=== PATIENT | male | born 1995 | race Native Hawaiian/Other Pacific Islander ===

== ENCOUNTER 2017-01-21 02:23 | Emergency (ER) | payer SELFPAY ==
[2017-01-21 02:46] VITALS: BP 152/94
[2017-01-21] MEDS ORDERED: TYLENOL #3 PO ONE (03:28)
[2017-01-21] MEDS ORDERED: TRIMOX PO ONE (03:28)
--- NOTE | 2017-01-21 03:28 | Emergency Department Report ---
HPI - General Chief Complaint: Dental/Oral Time Seen by Provider: 01/21/17 03:10 - HPI HPI: The patient is a 21-year-old male who presents to ED complaining of 10/10 pain in the right side of his mouth x one month. Patient states that the pain started 2 days ago and has increased in severity. The pain is exacerbated by eating and opening of the mouth. Patient states the pain is alleviated initially with pain medication but comes back. Patient states he has not been able to go to his dentist due to his loss of insurance. Patient states that it radiates towards ear. Patient describes a as a throbbing, pressure-like sensation. Patient states otherwise well and has no other complaints. Patient has had no fevers and no chills. No chest pain, no shortness of breath. No abdominal pain. No shortness of breath or recent trauma to the face. ED Past Medical Hx - Past Medical History Previous Medical History?: No - Surgical History Past Surgical History?: No - Social History Smoking Status: Current Every Day Smoker Substance Use Type: None - Medications Home Medications: Home Medications Medication Instructions Recorded Confirmed Last Taken Type Acetaminophen/Codeine 1 tab PO Q6H #12 tablet 01/21/17 Unknown Rx [Acetaminophen-Codeine #3 TAB] Amoxicillin [Trimox CAP] 500 mg PO BID #20 capsule 01/21/17 Unknown Rx Ibuprofen [Motrin] 600 mg PO Q8H PRN #20 tablet 01/21/17 Unknown Rx ED Review of Systems ROS: Stated complaint: TOOTHACHE Other details as noted in HPI Constitutional: denies: chills, fever Eyes: denies: eye pain, eye discharge, vision change ENT: dental pain. denies: ear pain, throat pain, hearing loss, epistaxis, congestion Respiratory: denies: cough, shortness of breath, wheezing Cardiovascular: denies: chest pain, palpitations Endocrine: no symptoms reported Gastrointestinal: denies: abdominal pain, nausea, diarrhea Genitourinary: denies: urgency, dysuria, frequency, hematuria, discharge, testicular pain, testicular mass Musculoskeletal: denies: back pain, joint swelling, arthralgia Skin: denies: rash, lesions Neurological: denies: headache, weakness, paresthesias Psychiatric: denies: anxiety, depression Hematological/Lymphatic: denies: easy bleeding, easy bruising Physical Exam - Physical Exam Vital Signs: Vital Signs 01/21/17 02:42 Temperature 98.2 F Pulse Rate 96 H Respiratory 18 Rate Blood Pressure 152/94 O2 Sat by Pulse 98 Oximetry Physical Exam: GENERAL: Alert and oriented x3, no apparent distress, Normal Gait, atraumatic. HEAD: Head is normocephalic and a-traumatic. EYES: Extra ocular muscles are intact. Pupils are equal, round, and reactive to light and accommodation. MOUTH:Mouth is well hydrated and without lesions. Tonsils nonerythematous or swollen, Uvula midline, Tongue not elevated. Mucous membranes are moist. Posterior pharynx clear, no exudate or lesions. Patent airways. No gingival enlargement. Dental caries seen in 31. Tender to palpation NECK: Supple. Non edematous, No carotid bruits. No lymphadenopathy or thyromegaly. LUNGS: Symetrical with respiration, No wheezing, no rales or crackles, CTAB. HEART: S1, S2 present, regular rate and rhythm without murmur, no rubs, no gallops. NEUROLOGIC: No focal Deficit, Cranial nerves II through XII are grossly intact. No loss of sensation, PSYCHIATRIC: Mood is congruent with affect, denies suicidal or homicidal ideations. SKIN: Warm and dry, No lesions, No ulceration or induration present. ED Course Vital Signs 01/21/17 02:42 Temperature 98.2 F Pulse Rate 96 H Respiratory 18 Rate Blood Pressure 152/94 O2 Sat by Pulse 98 Oximetry ED Medical Decision Making - Medical Decision Making 21-year-old male presents with dental pain due to caries or infection ED course: Patient received Tylenol 3 and amoxicillin E. Discussed the patient to follow up with dentist has referred. Discussed to take antibiotics and pain medication as needed. Vital signs are normal patient is in no acute respiratory distress. Patient states he'll follow up with dentist Critical care attestation.: If time is entered above; I have spent that time in minutes in the direct care of this critically ill patient, excluding procedure time. ED Disposition Clinical Impression: Dental caries, Pain, dental Disposition: DISCHARGED TO HOME OR SELFCARE Is pt being admited?: No Does the pt Need Aspirin: No Condition: Stable Instructions: Toothache (ED), Dental Caries (ED) Prescriptions: Acetaminophen/Codeine [Acetaminophen-Codeine #3 TAB] 1 tab PO Q6H #12 tablet Amoxicillin [Trimox CAP] 500 mg PO BID #20 capsule Ibuprofen [Motrin] 600 mg PO Q8H PRN #20 tablet PRN Reason: Pain [facility] - 3-5 Days [facility] [Outside] - 3-5 Days [facility] [Outside] - 3-5 Days Forms: Work/School Release Form(ED) Time of Disposition: 03:31
== END 2017-01-21 04:00 | disposition home or self-care (01) ==
LOC: ED 02:23
DX: K02.9 Dental caries, unspecified (principal); F17.200 Nicotine dependence, unspecified, uncomplicated
CPT/HCPCS: 99282

== ENCOUNTER 2017-09-01 20:21 | Emergency (ER) | payer SELFPAY ==
[2017-09-01 20:26] VITALS: BP 149/72
--- NOTE | 2017-09-01 21:17 | Emergency Department Report ---
HPI - General Chief Complaint: Extremity Injury, Lower Time Seen by Provider: 09/01/17 21:06 - HPI HPI: 22-year-old male presents to the emergency department from work after twisting his right ankle just prior to presentation. He has pain to the front and lateral portion of the ankle. It swelled up at work and he has some mild discomfort and this is what brought him in to be seen. He has a past medical history of diabetes. He did not take anything for her symptoms prior to presentation. He is able to bear weight but has some pain with doing so. ED Past Medical Hx - Past Medical History Hx Diabetes: Yes - Surgical History Past Surgical History?: No - Social History Smoking Status: Current Every Day Smoker Substance Use Type: None - Medications Home Medications: Home Medications Medication Instructions Recorded Confirmed Last Taken Type Acetaminophen/Codeine [Tylenol 1 tab PO Q6H #12 tablet 01/21/17 Unknown Rx /Codeine # 3 tab] Amoxicillin [Trimox CAP] 500 mg PO BID #20 capsule 01/21/17 Unknown Rx Ibuprofen [Motrin 600 MG tab] 600 mg PO Q8H PRN #20 tablet 09/01/17 Unknown Rx ED Review of Systems ROS: Stated complaint: ANKLE STRAIN Other details as noted in HPI Comment: All other systems reviewed and negative Constitutional: denies: chills, fever Eyes: denies: eye pain, eye discharge, vision change ENT: denies: ear pain, throat pain Respiratory: denies: cough, shortness of breath, wheezing Cardiovascular: edema (right ankle swelling). denies: chest pain, palpitations Gastrointestinal: denies: abdominal pain, nausea, diarrhea Genitourinary: denies: urgency, dysuria Musculoskeletal: joint swelling, arthralgia. denies: back pain Skin: denies: rash, lesions Neurological: denies: headache, weakness, paresthesias Physical Exam - Physical Exam Vital Signs: Vital Signs 09/01/17 20:24 Temperature 98.8 F Pulse Rate 97 H Respiratory 18 Rate Blood Pressure 149/72 O2 Sat by Pulse 97 Oximetry Physical Exam: GENERAL: The patient is well-developed well-nourished. HENT: Normocephalic. Atraumatic. Patient has moist mucous membranes. EYES: Extraocular motions are intact. Pupils equal reactive to light bilaterally. NECK: Supple. Trachea is midline. CHEST/LUNGS: Clear to auscultation. There is no respiratory distress noted. HEART/CARDIOVASCULAR: Regular. There is no tachycardia. There is no murmur. ABDOMEN: Abdomen is soft, nontender. Patient has normal bowel sounds. SKIN: Skin is warm and dry. No appreciable swelling or edema to the affected right ankle. NEURO: The patient is awake, alert, and oriented. The patient is cooperative. The patient has no focal neurologic deficits. The patient has normal speech. MUSCULOSKELETAL: There is some tenderness to palpation to the anterior right ankle as well as the lateral malleolus but no obvious deformity. There is some pain with range of motion. There is no limitation range of motion. ED Course Vital Signs 09/01/17 20:24 Temperature 98.8 F Pulse Rate 97 H Respiratory 18 Rate Blood Pressure 149/72 O2 Sat by Pulse 97 Oximetry ED Medical Decision Making - Radiology Data Radiology results: image reviewed interpreted by me: X-ray of the right ankle does not show any fracture, dislocation or obvious acute process. - Medical Decision Making Patient twisted his ankle at work and it caused some discomfort and some swelling. I don't see any obvious appreciable swelling but he does have some mild discomfort to palpation to the anterior and lateral worsens of the ankle. X-ray did not show any obvious fracture, dislocation or any acute process. I discussed with him that we are unable to see a ligament or tendon injury on x- ray. He'll be placed in a splint and given crutches and given a referral for an orthopedist. He will use rest, ice, compression and elevation. He will return to the ER with any worsening of his symptoms or any acute distress. - Differential Diagnosis ankle sprain, strain, fracture, dislocation Critical Care Time: No Critical care attestation.: If time is entered above; I have spent that time in minutes in the direct care of this critically ill patient, excluding procedure time. ED Disposition Clinical Impression: Right ankle sprain Qualifiers: Encounter type: initial encounter Involved ligament of ankle: unspecified ligament Qualified Code(s): S93.401A - Sprain of unspecified ligament of right ankle, initial encounter Disposition: TO HOME OR SELFCARE Is pt being admited?: No Condition: Stable Instructions: Ankle Sprain (ED) Additional Instructions: Please follow-up with your primary care physician in the next 3 days. I have given you a referral for a local orthopedist, Dr. Echavarria, to follow up regarding your ankle pain as you may need further evaluation and/or an MRI if your pain continues. Use rest, ice, compression and elevation. Return to the emergency Department with any worsening of your symptoms are any acute distress. Prescriptions: Ibuprofen [Motrin 600 MG tab] 600 mg PO Q8H PRN #20 tablet PRN Reason: Pain Referrals: RADHA ECHAVARRIA MD [Staff Physician] - 3-5 Days Time of Disposition: 21:18
--- NOTE | 2017-09-01 22:37 | XRay Report ---
FINAL REPORT PROCEDURE: Right ankle. TECHNIQUE: Three views. HISTORY: Ankle pain. COMPARISON: No prior studies are available for comparison. FINDINGS: The bones appear intact without fracture or dislocation. The joint spaces appear normal. The soft tissues are unremarkable. IMPRESSION: Normal study.
== END 2017-09-01 22:10 | disposition home or self-care (01) ==
LOC: ED 20:21
DX: S93.401A Sprain of unspecified ligament of right ankle, initial encounter (principal); E11.9 Type 2 diabetes mellitus without complications; F17.200 Nicotine dependence, unspecified, uncomplicated; X58.XXXA Exposure to other specified factors, initial encounter; Y93.9 Activity, unspecified; Y99.9 Unspecified external cause status; Y92.89 Other specified places as the place of occurrence of the external cause

== ENCOUNTER 2018-02-08 14:38 | Emergency (ER) | payer SELFPAY ==
[2018-02-08] MEDS ORDERED: XYLOCAINE 2% INFILTRATI ONE (16:49)
--- NOTE | 2018-02-08 16:57 | Emergency Department Report ---
ED General Adult HPI - General Chief complaint: Wound/Laceration Stated complaint: GLASS CUT BACK AND ELBOW Time Seen by Provider: 02/08/18 16:49 Source: patient Mode of arrival: Ambulatory Limitations: No Limitations - History of Present Illness Initial comments: Pt reports he was cleaning up broken glass when he fell sustaining multiple lacerations. Tetanus UTD. -: Sudden, hour(s) Location: back, upper extremity Severity scale (0 -10): 4 Quality: aching Consistency: constant Improves with: none Worsens with: none Associated Symptoms: denies other symptoms Treatments Prior to Arrival: none - Related Data Previous Rx's Medication Instructions Recorded Last Taken Type Ibuprofen [Motrin 600 MG tab] 600 mg PO Q8H PRN #20 tablet 02/08/18 Unknown Rx Allergies Allergy/AdvReac Type Severity Reaction Status Date / Time No Known Allergies Allergy Verified 02/08/18 14:55 ED Review of Systems ROS: Stated complaint: GLASS CUT BACK AND ELBOW Other details as noted in HPI Comment: All other systems reviewed and negative Constitutional: denies: chills, fever Eyes: denies: eye pain, eye discharge, vision change ENT: denies: ear pain, throat pain Respiratory: denies: cough, shortness of breath, wheezing Cardiovascular: denies: chest pain, palpitations Endocrine: no symptoms reported Gastrointestinal: denies: abdominal pain, nausea, diarrhea Genitourinary: denies: urgency, dysuria Musculoskeletal: denies: back pain, joint swelling, arthralgia Skin: denies: rash, lesions Neurological: denies: headache, weakness, paresthesias Psychiatric: denies: anxiety, depression Hematological/Lymphatic: denies: easy bleeding, easy bruising ED Past Medical Hx - Past Medical History Hx Diabetes: Yes - Surgical History Past Surgical History?: No - Social History Smoking Status: Never Smoker Substance Use Type: None - Medications Home Medications: Home Medications Medication Instructions Recorded Confirmed Last Taken Type Ibuprofen [Motrin 600 MG tab] 600 mg PO Q8H PRN #20 tablet 02/08/18 Unknown Rx ED Physical Exam - General Limitations: No Limitations General appearance: alert, in no apparent distress - Head Head exam: Present: atraumatic, normocephalic - Eye Eye exam: Present: normal appearance - ENT ENT exam: Present: mucous membranes moist - Neck Neck exam: Present: normal inspection - Respiratory Respiratory exam: Present: normal lung sounds bilaterally. Absent: respiratory distress - Cardiovascular Cardiovascular Exam: Present: regular rate, normal rhythm, other (intact radial pulses, equal bilat. ). Absent: systolic murmur, diastolic murmur, rubs, gallop - GI/Abdominal GI/Abdominal exam: Present: soft, normal bowel sounds - Rectal Rectal exam: Present: deferred - Extremities Exam Extremities exam: Present: normal inspection - Back Exam Back exam: Present: full ROM, other (lacerations) - Neurological Exam Neurological exam: Present: alert, oriented X3, reflexes normal. Absent: motor sensory deficit - Psychiatric Psychiatric exam: Present: normal affect, normal mood - Skin Skin exam: Present: warm, dry, intact, normal color, other (There is a 4 cm lac to the R elbow. There are five lacerations to the L side of the back. One is a small puncture, one is superficial and < 1 cm, and the other three each measure about 3 cm and are also more superficial. ). Absent: rash ED Course Vital Signs 02/08/18 14:55 Temperature 98.6 F Pulse Rate 99 H Respiratory 18 Rate Blood Pressure 140/74 O2 Sat by Pulse 99 Oximetry - Reevaluation(s) Reevaluation #1: 02/08/18 18:48 Pt stable for d/c. - Laceration /Wound Repair Left Back Wound Location: back Wound Length (cm): 3 Wound's Depth, Shape: superficial Wound Explored: clean Irrigated w/ Saline (ccs): 100 Betadine Prep?: Yes Anesthesia: 1% Lidocaine (2%) Volume Anesthetic (ccs): 1 Wound Debrided: minimal Wound Repaired With: sutures Suture Size/Type: 4:0, nylon Number of Sutures: 3 Layer Closure?: No Sterile Dressing Applied?: Yes Progress: tolerated well Left Lateral Back Wound Location: back Wound Length (cm): 3 Wound's Depth, Shape: superficial Wound Explored: clean Irrigated w/ Saline (ccs): 100 Betadine Prep?: Yes Anesthesia: 1% Lidocaine (2%) Volume Anesthetic (ccs): 1 Wound Debrided: minimal Wound Repaired With: sutures Suture Size/Type: 4:0, nylon Number of Sutures: 3 Layer Closure?: No Sterile Dressing Applied?: Yes Progress: tolerated well Left Posterior Back Wound Location: back Wound Length (cm): 2 Wound's Depth, Shape: superficial Wound Explored: clean Irrigated w/ Saline (ccs): 100 Betadine Prep?: Yes Anesthesia: 1% Lidocaine (2%) Volume Anesthetic (ccs): 1 Wound Debrided: minimal Wound Repaired With: sutures Suture Size/Type: 4:0, nylon Number of Sutures: 2 Layer Closure?: No Sterile Dressing Applied?: Yes Progress: tolerated well Back Wound Location: back Wound Length (cm): 1 Wound's Depth, Shape: superficial Wound Explored: clean Irrigated w/ Saline (ccs): 100 Betadine Prep?: Yes Wound Debrided: minimal Wound Repaired With: sutures Suture Size/Type: 4:0, nylon Number of Sutures: 1 Layer Closure?: No Sterile Dressing Applied?: Yes Progress: tolerated well Lateral Back Wound Location: back Wound Length (cm): 3 Wound's Depth, Shape: superficial Wound Explored: clean Irrigated w/ Saline (ccs): 100 Betadine Prep?: Yes Anesthesia: 1% Lidocaine (2%) Volume Anesthetic (ccs): 1 Wound Debrided: minimal Wound Repaired With: sutures Suture Size/Type: 4:0, nylon Number of Sutures: 3 Layer Closure?: No Sterile Dressing Applied?: Yes Progress: tolerated well Left Elbow Wound Location: upper extremity (L elbow) Wound Length (cm): 4 Wound's Depth, Shape: superficial (V shaped) Wound Explored: clean Irrigated w/ Saline (ccs): 500 Betadine Prep?: Yes Anesthesia: 1% Lidocaine (2%) Volume Anesthetic (ccs): 3 Wound Debrided: minimal Wound Repaired With: sutures Suture Size/Type: 4:0, nylon Number of Sutures: 6 Layer Closure?: No Sterile Dressing Applied?: Yes Progress: tolerated well ED Medical Decision Making - Radiology Data Radiology results: report reviewed no fb or fx on elbow plain film - Medical Decision Making Pt presents with multiple lacerations. All repaired, pt is up to date on tetanus. Monitor for signs of infection; wound care discussed. Sutures to be removed 10-14 days. - Differential Diagnosis lacerations, retained fb Critical care attestation.: If time is entered above; I have spent that time in minutes in the direct care of this critically ill patient, excluding procedure time. ED Disposition Clinical Impression: Laceration of multiple sites Disposition: TO HOME OR SELFCARE Is pt being admited?: No Condition: Good Instructions: Laceration (ED), Suture Care (ED) Prescriptions: Ibuprofen [Motrin 600 MG tab] 600 mg PO Q8H PRN #20 tablet PRN Reason: Pain Referrals: PRIMARY CARE, [Primary Care Provider] - 3-5 Days [facility] [Provider Group] - as needed (10-14 days for suture removal) Forms: Work/School Release Form(ED) Time of Disposition: 18:51
[2018-02-08] MEDS ORDERED: NACL 0.9% 500 ML IR ONE (16:59)
[2018-02-08] MEDS ORDERED: NACL 0.9% IR ONE (17:05)
--- NOTE | 2018-02-08 17:38 | XRay Report ---
FINAL REPORT EXAM: XR ELBOW 3+V LT HISTORY: lac due to glass TECHNIQUE: 3 views of left elbow. PRIORS: None. FINDINGS: No apparent fracture or dislocation. Joint spaces maintained. No abnormal fat pad sign. Apparent soft tissue defect, probable reported laceration and bandaging artifact over medial or ulnar soft tissues. Remainder of soft tissues grossly unremarkable. IMPRESSION: 1. No acute osseous abnormality. 2. Soft tissue posttraumatic change.
[2018-02-09 02:54] VITALS: BP 146/89
== END 2018-02-08 19:00 | disposition home or self-care (01) ==
LOC: ED 14:38
DX: S21.212A Laceration without foreign body of left back wall of thorax without penetration into thoracic cavity, initial encounter (principal); S51.012A Laceration without foreign body of left elbow, initial encounter; W25.XXXA Contact with sharp glass, initial encounter; Y93.89 Activity, other specified; Y92.89 Other specified places as the place of occurrence of the external cause; Y99.8 Other external cause status; E11.9 Type 2 diabetes mellitus without complications
CPT/HCPCS: 99283

== ENCOUNTER 2018-03-30 02:51 | Emergency (ER) | payer SELFPAY ==
--- NOTE | 2018-03-30 05:46 | Emergency Department Report ---
ED Rash HPI - HPI Chief Complaint: Skin Rash Stated Complaint: RASH ON BACK Time Seen by Provider: 03/30/18 05:41 Duration: 1 Day Location: Back Suspected Cause: Unknown Rash Symptoms: No Itching, No Facial Swelling, No Tongue/Oral Swelling, No Breathing Difficulties, No Choking Sensation, No Wheezing/Dyspnea, No Peeling, No Blistering, No Fever, No Lightheaded, No Malaise, No Myalgias Severity: mild Other History: 23-year-old male comes in for evaluation of rash to left side upper back onset unknown. Patient reports that he noticed it when he woke up this morning. 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 Denies any drainage from the rash. He reports a similar rash occur one week ago to his left buttocks and inner thigh. Patient reports that the rash just went away on its own. Patient also comes in requesting a refill on his metformin. Patient reports it is a diabetic type II and currently is on metformin 500 mg twice a day but does not have a primary care provider. Patient reports he is not checking his blood sugars. ED Review of Systems ROS: Stated complaint: RASH ON BACK Other details as noted in HPI Comment: All other systems reviewed and negative Constitutional: denies: chills, fever Skin: rash ED Past Medical Hx - Past Medical History Previous Medical History?: Yes Hx Diabetes: Yes - Surgical History Past Surgical History?: No - Social History Smoking Status: Never Smoker Substance Use Type: None - Medications Home Medications: Home Medications Medication Instructions Recorded Confirmed Last Taken Type Ibuprofen [Motrin 600 MG tab] 600 mg PO Q8H PRN #20 tablet 02/08/18 Unknown Rx Metformin HCl 500 mg PO BID #60 tablet 03/30/18 Unknown Rx Rash Exam - Exam General: Vital signs noted. No distress. Alert and acting appropriately. HEENT: No Periorbital Edema, No Conjuctival Injection, No Chemosis, No Perioral Edema, No Tongue Edema, No Uvular Edema, No Compromised Airway, No Drooling Lungs: Yes Good Air Exchange (Normal Breath Sounds), No Wheezes, No Ronchi, No Stridor, No Cough, No Labored Respirations, No Retractions, No Use of Accessory Muscles, No Other Abnormal Lung Sounds Heart: Yes Regular, No Murmur Skin: Yes Other (no rash noted at this time.) ED Course Vital Signs 03/30/18 02:57 Temperature 98.1 F Pulse Rate 87 Respiratory 16 Rate Blood Pressure 130/70 O2 Sat by Pulse 97 Oximetry ED Medical Decision Making - Medical Decision Making Patient has been evaluated by this provider fast track. Currently at this time patient has no rash on his back. Discussed the patient he should follow-up with [facility] I would give him the information below. Discussed the patient I will refill his metformin 500 mg twice a day for 30 days.\ Patient verbalized understanding. Critical care attestation.: If time is entered above; I have spent that time in minutes in the direct care of this critically ill patient, excluding procedure time. 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 It is very important for him to follow up with her primary care provider I have listed one below. Prescriptions: Metformin HCl 500 mg PO BID #60 tablet Referrals: PRIMARY CARE, [Primary Care Provider] - 3-[address] [facility] [Provider Group] - 3-5 Days Forms: Accompanied Note, Work/School Release Form(ED)
[2018-03-30 07:17] VITALS: BP 131/69
== END 2018-03-30 05:52 | disposition home or self-care (01) ==
LOC: ED 02:51
DX: R21 Rash and other nonspecific skin eruption (principal); E11.9 Type 2 diabetes mellitus without complications; Z79.84 Long term (current) use of oral hypoglycemic drugs

== ENCOUNTER 2019-06-07 03:25 | Emergency (ER) | payer SELFPAY ==
[2019-06-07 03:31] VITALS: BP 151/88
--- NOTE | 2019-06-07 03:59 | Emergency Department Report ---
ED General Adult HPI - General Chief complaint: Skin/Abscess/Foreign Body Stated complaint: SPIDER BITE ON ABD Source: patient Mode of arrival: Ambulatory Limitations: No Limitations - History of Present Illness Initial comments: Patient is a 24-year-old male who presents for spider bite to abdomen 3 days ago there is mild erythema states painless touch patient states he expressed puse yesterday there is no fever no chills no nausea vomiting no abd pain no swelling no relieving or exacerbating factors. Onset/Timin -: days(s) Location: abdomen (right lateral abd wall ) Radiation: non-radiation Severity scale (0 -10): 0 Quality: other (itching ) Consistency: constant Improves with: none Worsens with: none Associated Symptoms: denies other symptoms Treatments Prior to Arrival: none - Related Data Previous Rx's Medication Instructions Recorded Last Taken Type Ibuprofen [Motrin 600 MG tab] 600 mg PO Q8H PRN #20 tablet 02/08/18 Unknown Rx Metformin HCl 500 mg PO BID #60 tablet 03/30/18 Unknown Rx Ibuprofen [Motrin 800 MG tab] 800 mg PO Q8HR PRN #30 tablet 06/07/19 Unknown Rx cephALEXin [Keflex] 500 mg PO Q8HR 10 Days #30 cap 06/07/19 Unknown Rx diphenhydrAMINE [Benadryl CAP] 25 mg PO Q8HR PRN #30 capsule 06/07/19 Unknown Rx Allergies Allergy/AdvReac Type Severity Reaction Status Date / Time No Known Allergies Allergy Verified 02/08/18 14:55 ED Review of Systems ROS: Stated complaint: SPIDER BITE ON ABD Other details as noted in HPI Constitutional: denies: chills, fever Eyes: denies: eye pain, eye discharge, vision change ENT: denies: ear pain, throat pain Respiratory: denies: cough, shortness of breath, wheezing Cardiovascular: denies: chest pain, palpitations Endocrine: no symptoms reported Gastrointestinal: denies: abdominal pain, nausea, diarrhea Genitourinary: denies: urgency, dysuria Musculoskeletal: denies: back pain, joint swelling, arthralgia Skin: other (mild erythema right lateral abd wall) Neurological: denies: headache, weakness, paresthesias Psychiatric: denies: anxiety, depression Hematological/Lymphatic: denies: easy bleeding, easy bruising ED Past Medical Hx - Past Medical History Previous Medical History?: Yes Hx Diabetes: Yes - Surgical History Past Surgical History?: No - Social History Smoking Status: Current Every Day Smoker Substance Use Type: None - Medications Home Medications: Home Medications Medication Instructions Recorded Confirmed Last Taken Type Ibuprofen [Motrin 600 MG tab] 600 mg PO Q8H PRN #20 tablet 02/08/18 Unknown Rx Metformin HCl 500 mg PO BID #60 tablet 03/30/18 Unknown Rx Ibuprofen [Motrin 800 MG tab] 800 mg PO Q8HR PRN #30 tablet 06/07/19 Unknown Rx cephALEXin [Keflex] 500 mg PO Q8HR 10 Days #30 cap 06/07/19 Unknown Rx diphenhydrAMINE [Benadryl CAP] 25 mg PO Q8HR PRN #30 capsule 06/07/19 Unknown Rx ED Physical Exam - General Limitations: No Limitations General appearance: alert, in no apparent distress - Head Head exam: Present: atraumatic, normocephalic - Eye Eye exam: Present: normal appearance, PERRL, EOMI Pupils: Present: normal accommodation - ENT ENT exam: Present: mucous membranes moist - Neck Neck exam: Present: normal inspection - Respiratory Respiratory exam: Present: normal lung sounds bilaterally. Absent: respiratory distress - Cardiovascular Cardiovascular Exam: Present: regular rate, normal rhythm, normal heart sounds. Absent: systolic murmur, diastolic murmur, rubs, gallop - GI/Abdominal GI/Abdominal exam: Present: soft, tenderness (mild abd wall tenders to insect bite site.), normal bowel sounds. Absent: distended, guarding, rebound, rigid, bruit, hernia - Rectal Rectal exam: Present: deferred - Extremities Exam Extremities exam: Present: normal inspection, full ROM, normal capillary refill. Absent: tenderness - Back Exam Back exam: Present: normal inspection, full ROM. Absent: tenderness, rash noted - Neurological Exam Neurological exam: Present: alert, oriented X3, CN II-XII intact, normal gait - Psychiatric Psychiatric exam: Present: normal affect, normal mood - Skin Skin exam: Present: warm, dry, intact, normal color, erythema (right lateral abd wall no drainage no fever non fluctuant). Absent: rash ED Course Vital Signs 06/07/19 03:30 Temperature 98.8 F Pulse Rate 99 H Respiratory 20 Rate Blood Pressure 151/88 O2 Sat by Pulse 95 Oximetry ED Medical Decision Making - Medical Decision Making this is mild cellulitis to abd wall plan keflex, benadryl, ibuprofen site care as directed pt will follow up with pcp in 2-3 days. pt verbalized agreement and understanding of discharge plan. Critical care attestation.: If time is entered above; I have spent that time in minutes in the direct care of this critically ill patient, excluding procedure time. ED Disposition Clinical Impression: Cellulitis Qualifiers: Site of cellulitis: unspecified site Qualified Code(s): L03.90 - Cellulitis, unspecified Disposition: TO HOME OR SELFCARE Is pt being admited?: No Does the pt Need Aspirin: No Condition: Stable Instructions: Cellulitis (ED) Prescriptions: diphenhydrAMINE [Benadryl CAP] 25 mg PO Q8HR PRN #30 capsule PRN Reason: Itching cephALEXin [Keflex] 500 mg PO Q8HR 10 Days #30 cap Ibuprofen [Motrin 800 MG tab] 800 mg PO Q8HR PRN #30 tablet PRN Reason: pain Referrals: ZI HANEY MD [Primary Care Provider] - 3-5 Days Forms: Work/School Release Form(ED) Time of Disposition: 04:07
== END 2019-06-07 04:17 | disposition home or self-care (01) ==
LOC: ED 03:25
DX: L03.311 Cellulitis of abdominal wall (principal); E11.9 Type 2 diabetes mellitus without complications; F17.200 Nicotine dependence, unspecified, uncomplicated; Z79.899 Other long term (current) drug therapy
CPT/HCPCS: 82962

== ENCOUNTER 2020-12-09 21:59 | Emergency (ER) | payer SELFPAY ==
[2020-12-09 22:52] VITALS: BP 152/89
--- NOTE | 2020-12-09 23:04 | Emergency Department Report ---
- General Chief Complaint: Upper Respiratory Infection Stated Complaint: SORE THROAT;LYNN;MEDICATION REFILL Source: patient Mode of arrival: Ambulatory Limitations: No Limitations - History of Present Illness Initial Comments: Patient is a 25-year-old male with a history of [id number] diabetes and obesity who presents to the ED with complaint of acute onset persistent nasal and sinus congestion, frontal sinus pressure, sore throat and persistent cough with intermittent wheezing for the last 1 month, worse in the last 2 days. Patient also states that the symptoms are worse in the morning when he wakes up. Patient also states that he ran out of his diabetic medications glipizide med 10 mg about 2 months ago although he states that his fasting blood sugar has been in the range of 140s. Patient denies fever, chills, nausea, vomiting, diarrhea, chest pain, shortness of breath, dizziness, syncope, abdominal pain, dysuria, urinary frequency and urgency, change in vision or neck pain. MD Complaint: cough, sore throat, rhinorrhea, nasal congestion, sinus pain -: Sudden, month(s) (1) Severity: moderate Severity scale (0 -10): 5 Quality: dull, aching Consistency: constant Improves With: nothing Worsens With: nothing Associated Symptoms: denies other symptoms, headache, rhinorrhea, nasal congestion, sore throat, cough. denies: fever, chills, myalgias, diaphoresis, stiff neck, chest pain, shortness of breath, abdominal pain, nausea, vomiting, diarrhea, dysuria, rash, right sweats, weight loss, epistaxis, hoarseness, ear pain, other Treatments Prior to Arrival: none - Related Data Previous Rx's Medication Instructions Recorded Last Taken Type Ibuprofen [Motrin 600 MG tab] 600 mg PO Q8H PRN #20 tablet 02/08/18 Unknown Rx Metformin HCl 500 mg PO BID #60 tablet 03/30/18 Unknown Rx Ibuprofen [Motrin 800 MG tab] 800 mg PO Q8HR PRN #30 tablet 06/07/19 Unknown Rx cephALEXin [Keflex] 500 mg PO Q8HR 10 Days #30 cap 06/07/19 Unknown Rx diphenhydrAMINE [Benadryl CAP] 25 mg PO Q8HR PRN #30 capsule 06/07/19 Unknown Rx Amoxicillin [Trimox CAP] 500 mg PO Q8H #30 capsule 12/09/20 Unknown Rx Benzonatate [Tessalon Perles] 100 mg PO Q8HR #30 capsule 12/09/20 Unknown Rx Cetirizine HCl [Zyrtec 10mg tab] 10 mg PO DAILY #30 tablet 12/09/20 Unknown Rx glipiZIDE [Glucotrol] 10 mg PO BID #60 tab 12/09/20 Unknown Rx Allergies Allergy/AdvReac Type Severity Reaction Status Date / Time No Known Allergies Allergy Verified 02/08/18 14:55 ED Review of Systems ROS: Stated complaint: SORE THROAT;LYNN;MEDICATION REFILL Other details as noted in HPI Constitutional: denies: chills, fever Eyes: denies: eye pain, eye discharge, vision change ENT: throat pain, congestion. denies: ear pain Respiratory: cough. denies: shortness of breath, wheezing Cardiovascular: denies: chest pain, palpitations Endocrine: no symptoms reported Gastrointestinal: denies: abdominal pain, nausea, diarrhea Genitourinary: denies: urgency, dysuria Musculoskeletal: denies: back pain, joint swelling, arthralgia Skin: denies: rash, lesions Neurological: denies: headache, weakness, paresthesias Psychiatric: denies: anxiety, depression Hematological/Lymphatic: denies: easy bleeding, easy bruising ED Past Medical Hx - Past Medical History Previous Medical History?: Yes Hx Diabetes: Yes - Surgical History Past Surgical History?: No - Social History Smoking Status: Never Smoker Substance Use Type: None - Medications Home Medications: Home Medications Medication Instructions Recorded Confirmed Last Taken Type Ibuprofen [Motrin 600 MG tab] 600 mg PO Q8H PRN #20 tablet 02/08/18 Unknown Rx Metformin HCl 500 mg PO BID #60 tablet 03/30/18 Unknown Rx Ibuprofen [Motrin 800 MG tab] 800 mg PO Q8HR PRN #30 tablet 06/07/19 Unknown Rx cephALEXin [Keflex] 500 mg PO Q8HR 10 Days #30 cap 06/07/19 Unknown Rx diphenhydrAMINE [Benadryl CAP] 25 mg PO Q8HR PRN #30 capsule 06/07/19 Unknown Rx Amoxicillin [Trimox CAP] 500 mg PO Q8H #30 capsule 12/09/20 Unknown Rx Benzonatate [Tessalon Perles] 100 mg PO Q8HR #30 capsule 12/09/20 Unknown Rx Cetirizine HCl [Zyrtec 10mg tab] 10 mg PO DAILY #30 tablet 12/09/20 Unknown Rx glipiZIDE [Glucotrol] 10 mg PO BID #60 tab 12/09/20 Unknown Rx ED Physical Exam - General Limitations: No Limitations General appearance: alert, in no apparent distress, obese - Head Head exam: Present: atraumatic, normocephalic, normal inspection - Eye Eye exam: Present: normal appearance, PERRL, EOMI Pupils: Present: normal accommodation - ENT ENT exam: Present: mucous membranes moist, normal external ear exam, other (Grossly congested nasal passages; erythematous oropharynx with mild tonsillar exudate) - Neck Neck exam: Present: normal inspection, full ROM - Respiratory Respiratory exam: Present: normal lung sounds bilaterally. Absent: respiratory distress, wheezes, chest wall tenderness, accessory muscle use, decreased breath sounds, prolonged expiratory - Cardiovascular Cardiovascular Exam: Present: normal rhythm, tachycardia, normal heart sounds. Absent: systolic murmur, diastolic murmur, rubs, gallop - GI/Abdominal GI/Abdominal exam: Present: soft, normal bowel sounds. Absent: tenderness, guarding, rigid, hyperactive bowel sounds, hypoactive bowel sounds - Extremities Exam Extremities exam: Present: normal inspection, full ROM, normal capillary refill - Back Exam Back exam: Present: normal inspection, full ROM. Absent: tenderness, CVA tenderness (R), CVA tenderness (L), muscle spasm - Neurological Exam Neurological exam: Present: alert, oriented X3, CN II-XII intact, normal gait, reflexes normal - Psychiatric Psychiatric exam: Present: normal affect, normal mood - Skin Skin exam: Present: warm, dry, intact, normal color. Absent: rash ED Course Vital Signs 12/09/20 22:49 Temperature 98.4 F Pulse Rate 100 H Respiratory 17 Rate Blood Pressure 152/89 O2 Sat by Pulse 96 Oximetry ED Medical Decision Making - Medical Decision Making This is a 25-year-old male with a history of [id number] diabetes and obesity who presents to the ED with complaint of acute onset persistent nasal and sinus congestion, frontal sinus pressure, sore throat and persistent cough with intermittent wheezing for the last 1 month, worse in the last 2 days. Patient also states that the symptoms are worse in the morning when he wakes up. Patient also states that he ran out of his diabetic medications glipizide med 10 mg about 2 months ago although he states that his fasting blood sugar has been in the range of 140s. In the ED, patient is alert and oriented x3 and is not in distress. Patient history and physical exam findings, the patient was discharged home on medications and advised to follow- up with his primary care physician in 7 to 10 days for reevaluation or return to the ED immediately if symptoms get worse. - Differential Diagnosis Acute pharyngitis; acute bronchitis; URI; sinusitis Critical care attestation.: If time is entered above; I have spent that time in minutes in the direct care of this critically ill patient, excluding procedure time. ED Disposition Clinical Impression: Acute bacterial pharyngitis, Acute bacterial bronchitis, Acute upper respiratory infection Disposition: TO HOME OR SELFCARE Is pt being admited?: No Does the pt Need Aspirin: No Condition: Stable Instructions: Acute Bronchitis, Adult, [id number], Upper Respiratory Infection, Adult, [id number], Pharyngitis, [id number], Acute Bronchitis (ED) Additional Instructions: Take medication with food, drink plenty of fluids and follow-up with your primary care physician in 7 to 10 days for reevaluation. Return to the ED immediately if symptoms get worse. Prescriptions: glipiZIDE [Glucotrol] 10 mg PO BID #60 tab Benzonatate [Tessalon Perles] 100 mg PO Q8HR #30 capsule Amoxicillin [Trimox CAP] 500 mg PO Q8H #30 capsule Cetirizine HCl [Zyrtec 10mg tab] 10 mg PO DAILY #30 tablet Referrals: JOLLY SALDIVAR MD [Staff Physician] - 7-10 days Forms: Work/School Release Form(ED) Time of Disposition: 23:01 Print Language: [place]INGAPORE[place]
== END 2020-12-09 23:37 | disposition home or self-care (01) ==
LOC: ED 21:59
DX: J20.9 Acute bronchitis, unspecified (principal); J06.9 Acute upper respiratory infection, unspecified; J02.8 Acute pharyngitis due to other specified organisms; B96.89 Other specified bacterial agents as the cause of diseases classified elsewhere; E11.9 Type 2 diabetes mellitus without complications; Z79.1 Long term (current) use of non-steroidal anti-inflammatories (NSAID); Z79.2 Long term (current) use of antibiotics; Z79.84 Long term (current) use of oral hypoglycemic drugs; Z79.899 Other long term (current) drug therapy
CPT/HCPCS: 99282